=== PATIENT | female | born 1975 | race Caucasian/White ===

== ENCOUNTER 2022-12-25 21:44 | Emergency (ER) | payer OTHER, MEDICAID, SELFPAY ==
[2022-12-25 21:54] VITALS: BP 130/68; PULSE 76; RESP 16; TEMP 36.6; O2SAT 98; BMI 35.4
--- NOTE | 2022-12-25 22:29 | ED_ITS ---
HPI - Back Pain/Injury General Chief Complaint: Back Pain/Injury Stated Complaint: lower rt back pain Time Seen by Provider: 12/25/22 22:15 Source: patient Mode of arrival: Ambulatory Limitations: no limitations History of Present Illness HPI Narrative: Patient is a 47-year-old female who is here for evaluation of a couple days of right-sided lower back discomfort. She denies any specific trauma. She states that initially she thought that she had a kidney infection so she is been taking cranberry juice at home without much improvement. She denies any urinary symptoms. No skin rashes. No fevers. She states that she was having quite a bit of trouble standing at work today. Related Data Allergies Allergy/AdvReac Type Severity Reaction Status Date / Time naproxen Allergy Intermediate Swelling Verified 12/25/22 23:22 of Lip/Tongue/Throat Review of Systems Cardiovascular Cardiovascular: Reports system reviewed and no additional complaints, except as documented Gastrointestinal Gastrointestinal: Reports system reviewed and no additional complaints, except as documented Genitourinary Genitourinary: Reports system reviewed and no additional complaints, except as documented Integumentary/Breasts Skin/Breast: Reports system reviewed and no additional complaints, except as documented Neurologic Neurologic: Reports system reviewed and no additional complaints, except as documented Patient History Social History Smoking Status: Former smoker Smoking Status: Former smoker Substance Use Type: does not use Exam Initial Vital Signs Initial Vital Signs: Vital Signs Temperature 97.9 F 12/25/22 21:54 Pulse Rate 76 12/25/22 21:54 Respiratory Rate 16 12/25/22 21:54 Blood Pressure 130/68 12/25/22 21:54 Pulse Oximetry 98 12/25/22 21:54 Oxygen Delivery Method Room Air 12/25/22 21:54 HENMT Head: normal to inspection and normocephalic GI Inspection: normal to inspection and non-distended Palpation: soft and No tender Back/Spine/Pelvis Thoracic/Lumbar Spine: paraspinal tenderness, No thoracic spinal tenderness and No lumbar spinal tenderness Skin General: no rashes or lesions noted Neuro General: patient alert, patient awake and moves all extremities Extrem General: capillary refill normal Course Orders Ordered: ED Orders 12/25/22 22:05 Ictotest Urine Stat Urine Culture Stat Urine Microscopic Stat 12/25/22 22:30 CT kidney ureter bladder (KUB) Stat 12/25/22 22:53 Basic Metabolic Panel Stat Complete Blood Count AUTO DIFF Stat Discontinued Medications Hydrocodone Bitart/Acetaminophen (Hydrocodone/Acet 5/325 Prepack) 1 bottle MISC SEEINSTR ONE Stop: 12/26/22 00:10 Last Admin: 12/26/22 00:20 Dose: 1 bottle Documented By: GC Cyclobenzaprine HCl (Cyclobenzaprine 10 Mg Prepack) 1 bottle MISC SEEINSTR ONE Stop: 12/26/22 00:10 Last Admin: 12/26/22 00:20 Dose: 1 bottle Documented By: GC Ketorolac Tromethamine (Ketorolac 30 Mg/Ml Vial) 30 mg IV NOW ONE Stop: 12/26/22 00:09 Last Admin: 12/26/22 00:16 Dose: 30 mg Documented By: SB Vital Signs Vital signs: Vital Signs - 8 hr 12/25/22 21:54 12/26/22 00:20 Temperature 97.9 F Pulse Rate 76 63 Respiratory Rate 16 16 Blood Pressure 130/68 129/56 L Pulse Oximetry 98 98 Oxygen Delivery Method Room Air Room Air MDM - Back Pain/Injury Lab Data Attestation: I reviewed the patient's lab results. 12/25/22 22:53 12/25/22 22:53 Labs: Lab Results 12/25/22 12/25/22 12/25/22 Range/Units 22:05 22:53 22:53 WBC 9.0 (4.5-11.0) X10^3/uL RBC 4.36 (4.0-5.2) X10^6/uL Hgb 12.4 (12.0-16.0) g/dL Hct 37.2 (36-46) % MCV 85.3 (80-100) fL MCH 28.5 (26-34) PG MCHC 33.5 (30-36) % RDW 15.7 H (11.6-14.8) % Plt Count 331 (150-400) X10^3/uL Neut % (Auto) 60.2 (50-75) % Lymph % (Auto) 29.7 (25-40) % Rolette % (Auto) 7.5 (3-14) % Eos % (Auto) 1.4 L (2-4) % Baso % (Auto) 1.2 (0-2) % Neut # (Auto) 5400 (6541-0551) /uL Lymph # (Auto) 2700 (8821-4995) /uL Rolette # (Auto) 700 (0-900) /uL Eos # (Auto) 100 (0-450) /uL Baso # (Auto) 100 (0-100) /uL Sodium 137 (137-145) mmol/L Potassium 3.9 (3.4-5.1) mmol/L Chloride 101 (98-107) mmol/L Carbon Dioxide 31 (22-32) mmol/L BUN 20 H (7-17) mg/dL Creatinine 0.72 (0.52-1.04) mg/dL Estimated GFR > 60 (>60) mL/min BUN/Creatinine Ratio 27.8 H (6-22) Glucose 91 (70-100) mg/dL Calcium 9.0 (8.4-10.2) mg/dL Ur Bilirubin Confirm Negative (Negative) Urine RBC 0-1/hpf (0-5/HPF) Urine WBC 0-1/hpf (0-5/HPF) Ur Squamous Epith Cells 5-10 /hpf H (0-5/HPF) Urine Bacteria Moderate (10-30) H (None) Ur Culture Indicated? Specimen cultured Point of Care Testing Test Results Negative Urine Dip Bedside Urine Glucose Negative Bedside Urine Bilirubin - Negative Bedside Urine Ketone - Negative Urine Specific [place] 1.030 Bedside Urine Occult Blood + Bedside Urine pH 6.0 Bedside Urine Protein +/- 15 Bedside Urine Urobilinogen +/- 1mg Bedside Urine Nitrite - Negative Bedside Urine Leukocytes - Negative Esterase Imaging Data CT scan - abdomen/pelvis: Radiologist's Impression: PROCEDURE:? CT KIDNEY URETER BLADDER (KUB) ? INDICATIONS:? Right side flank pain eval for stone ? TECHNIQUE:? Axial sections were acquired from the lung bases to the pubic symphysis.? Coronal and sagittal reformats were performed.? For radiation dose reduction, the following was used: ?automated exposure control, adjustment of mA and/or kV according to patient size.? ? COMPARISON:? None. ? FINDINGS:? Image quality:? Evaluation limited by body habitus.? ? Lung bases:? There is minimal atelectasis.? ? Heart:? Heart is normal in size.? There is a small hiatal hernia. ? URINARY: Right Kidney and Ureter: ? No stones or hydronephrosis.? No hydroureter.? ? Left Kidney and Ureter: ? No stones or hydronephrosis.? No hydroureter. ? Bladder:? The urinary bladder is partially distended. No stones. ? ? ? ABDOMEN: Liver:? Noncontrast evaluation of the liver demonstrates no discrete? mass. Gallbladder:? Surgically absent. Biliary ducts:? No biliary ductal dilatation.? ? Pancreas:? Unremarkable.? ? Spleen:? Normal in size.? ? Adrenal Glands:? No adrenal nodules.? ? ? Stomach and Bowel:? Postsurgical changes are demonstrated compatible with gastric bypass. ?Stomach, small bowel loops, and colon are normal in caliber and wall thickness.? Appendix is surgically absent.? Peritoneum:? No abnormal intraperitoneal fluid.? No free air.? ? Ventral Wall: ? No hernia.? There are postsurgical changes within the ventral abdominal wall with a midline incisional scar. Abdominal Nodes:? No retroperitoneal or mesenteric adenopathy by size criteria.? Vessels:? Aorta and inferior vena cava are normal in size.? ? PELVIS: Pelvic Organs:? Unremarkable.? ? Pelvic Nodes: No enlarged lymph nodes.? Miscellaneous: No inguinal hernias identified. ? ? ? Bones:? Visualized osseous structures demonstrate no suspicious focal lesions. IMPRESSION:? ? 1. Limited study demonstrates no definite acute intra-abdominal abnormality.? Specifically, no nephrolithiasis or obstructive uropathy. ? 2. Small hiatal hernia and postsurgical changes compatible with prior gastric bypass.? No evidence of bowel obstruction. MDM Narrative Medical decision making narrative: Urinalysis is unremarkable except for hematuria. Patient has never had a kidney stone. CT scan shows no acute pathology. No indication of a urinary tract infection. Low suspicion for pyelonephritis. There is no skin changes over the area concerning for zoster. She also has no specific abdominal tenderness. I suspect that this is musculoskeletal. She is allergic to Naprosyn but can take other anti-inflammatories. Will send home with a prescription for symptom cont rol. We did discuss her hematuria. We discussed that she needs to follow-up with her primary doctor regarding this to evaluate for potential further referral to see Urology. No indication for admission to the hospital. Patient can be safely discharged home. Discharge Plan Departure Patient Disposition: Home Clinical Impression: Lower back pain, Hematuria Instructions: DI for Hematuria, DI for Back Strain or Sprain Activity Restrictions/Additional Instructions: Your workup here in the emergency department is very reassuring. We did find that you have blood in your urine today. This does require follow-up with your primary doctor to make sure that the blood has cleared. Most likely this will be with another urine sample in the near future. You may need a referral to see Urology if does not clear. As far as your lower back pain is concerned I recommend that you continue with anti-inflammatories. You can use the medications that you were given this evening as needed on a limited basis. Recommend heat and ice and light stretching. I also recommend you follow-up with your primary doctor regarding this as well especially if your symptoms do not improve. Stand Alone Forms: Patient Portal/API
--- NOTE | 2022-12-25 22:30 | DI.CT.S_ITS ---
PROCEDURE: CT KIDNEY URETER BLADDER (KUB) INDICATIONS: Right side flank pain eval for stone TECHNIQUE: Axial sections were acquired from the lung bases to the pubic symphysis. Coronal and sagittal reformats were performed. For radiation dose reduction, the following was used: automated exposure control, adjustment of mA and/or kV according to patient size. COMPARISON: None. FINDINGS: Image quality: Evaluation limited by body habitus. Lung bases: There is minimal atelectasis. Heart: Heart is normal in size. There is a small hiatal hernia. URINARY: Right Kidney and Ureter: No stones or hydronephrosis. No hydroureter. Left Kidney and Ureter: No stones or hydronephrosis. No hydroureter. Bladder: The urinary bladder is partially distended. No stones. ABDOMEN: Liver: Noncontrast evaluation of the liver demonstrates no discrete mass. Gallbladder: Surgically absent. Biliary ducts: No biliary ductal dilatation. Pancreas: Unremarkable. Spleen: Normal in size. Adrenal Glands: No adrenal nodules. Stomach and Bowel: Postsurgical changes are demonstrated compatible with gastric bypass. Stomach, small bowel loops, and colon are normal in caliber and wall thickness. Appendix is surgically absent. Peritoneum: No abnormal intraperitoneal fluid. No free air. Ventral Wall: No hernia. There are postsurgical changes within the ventral abdominal wall with a midline incisional scar. Abdominal Nodes: No retroperitoneal or mesenteric adenopathy by size criteria. Vessels: Aorta and inferior vena cava are normal in size. PELVIS: Pelvic Organs: Unremarkable. Pelvic Nodes: No enlarged lymph nodes. Miscellaneous: No inguinal hernias identified. Bones: Visualized osseous structures demonstrate no suspicious focal lesions. IMPRESSION: 1. Limited study demonstrates no definite acute intra-abdominal abnormality. Specifically, no nephrolithiasis or obstructive uropathy. 2. Small hiatal hernia and postsurgical changes compatible with prior gastric bypass. No evidence of bowel obstruction. Dictated by: Luis Manuel Toledo M.D. on 12/25/2022 at 23:53 Approved by: Luis Manuel Toledo M.D. on 12/25/2022 at 23:58
[2022-12-25 22:33] LABS: Ictotest Urine Negative (Negative)
[2022-12-25 22:42] LABS: Bacteria Urine Moderate (10-30); Culture Indicated Urine Specimen Cultured; RBC Urine 0-1/HPF (0-5/HPF); Squamous Epithelial Cell Urine 5-10 /HPF (0-5/HPF); WBC Urine 0-1/HPF (0-5/HPF)
[2022-12-25 23:04] LABS: Add Manual Diff / Slide Review NO; Basophils Absolute Auto 100 /uL (0-100); Basophils Percent Auto 1.2 % (0-2); Eosinophils Absolute Auto 100 /uL (0-450); Eosinophils Percent Auto 1.4 % (2-4); Hematocrit 37.2 % (36-46); Hemoglobin 12.4 g/dL (12.0-16.0); Lymphocytes Absolute Auto 2700 /uL (1100-4500); Lymphocytes Percent Auto 29.7 % (25-40); Mean Corpuscular HGB Conc 33.5 % (30-36); Mean Corpuscular Hemoglobin 28.5 PG (26-34); Mean Corpuscular Volume 85.3 fL (80-100); Monocytes Absolute Auto 700 /uL (0-900); Monocytes Percent Auto 7.5 % (3-14); Neutrophils Absolute Auto 5400 /uL (1500-7000); Neutrophils Percent Auto 60.2 % (50-75); Platelet Count 331 X10^3/uL (150-400); Red Blood Cell Count 4.36 X10^6/uL (4.0-5.2); Red Cell Distribution Width 15.7 % (11.6-14.8)
[2022-12-25 23:11] LABS: BUN Creatinine Ratio 27.8 (6-22); Blood Urea Nitrogen 20 mg/dL (7-17); Carbon Dioxide 31 mmol/L (22-32); Chloride 101 mmol/L (98-107); Estimated Glomerular Filt Rate > 60 mL/min (>60); Glucose 91 mg/dL (70-100); HEMOLYSIS 38 (0-50); Potassium 3.9 mmol/L (3.4-5.1); Sodium 137 mmol/L (137-145)
[2022-12-26] MEDS: KETOROLAC 30 MG/ML VIAL IV (00:16)
[2022-12-26 00:20] VITALS: BP 129/56; PULSE 63; RESP 16; O2SAT 98
[2022-12-26] MEDS: CYCLOBENZAPRINE 10 MG PREPACK 1 BOTTLE MISC (00:20)
[2022-12-26] MEDS: HYDROCODONE/ACET 5/325 PREPACK 1 BOTTLE MISC (00:20)
== END 2022-12-26 00:27 | disposition home or self-care (01) ==
PROVIDERS: Emergency Provider Emergency Medicine
DX: M54.50 Low back pain, unspecified (principal); R31.9 Hematuria, unspecified
CPT/HCPCS: 36415; 74176; 80048; 81003; 81015; 81025; 85025; 87086; 96374; 99284; J1885